=== PATIENT | male | born 1990 | race Caucasian/White ===

== ENCOUNTER 2019-01-27 17:45 | Emergency (ER) | payer OTHER ==
[~2019-01-27] VITALS: Ht 205.7 cm; Wt 80.3 kg
[2019-01-27 17:50] VITALS: BP 133/75; Ht 205.7 cm; Wt 80.3 kg
== END 2019-01-27 19:24 | disposition home or self-care (01) ==
LOC: ED 17:45
DX: S40.011A Contusion of right shoulder, initial encounter (principal); I10 Essential (primary) hypertension; W18.40XA Slipping, tripping and stumbling without falling, unspecified, initial encounter; Y93.89 Activity, other specified; Y92.89 Other specified places as the place of occurrence of the external cause; Y99.8 Other external cause status